=== PATIENT | female | born 1955 ===

== ENCOUNTER 2017-06-06 05:04 | Day surgery (SDC) | payer BC, OTHER ==
[2017-06-04 18:21] VITALS: BMI 33.8
[~2017-06-06 05:04] MED LIST: BUPIVACAINE HCL/PF 0.25% (2.5MG/ML) 10 ML VIAL IJ ONE; LIDOCAINE HCL 1% PRESERVATIVE FREE - 30ML VIAL IJ ONE; methylPREDNISolone ACET (DEPO) 80 MG/1 ML VIAL IJ ONE
[2017-06-06 06:28] VITALS: TEMP 97.8
[2017-06-06] MEDS ORDERED: LIDOCAINE HCL 1%, 10 MG/ML (20ML VIAL) ONE ×2 (07:16→07:17)
[2017-06-06] MEDS ORDERED: BUPIVACAINE HCL/PF 0.25% (2.5MG/ML) 10 ML VIAL ONE (07:16)
[2017-06-06] MEDS ORDERED: methylPREDNISolone ACET (DEPO) 80 MG/1 ML VIAL ONE (07:16)
[2017-06-06] MEDS ORDERED: MIDAZOLAM HCL 2 MG/2 ML SINGLE DOSE VIAL ONE (07:57)
[2017-06-06] MEDS ORDERED: LIDOCAINE HCL 1% PRESERVATIVE FREE - 30ML VIAL IJ ONE (08:25)
[2017-06-06] MEDS ORDERED: methylPREDNISolone ACET (DEPO) 80 MG/1 ML VIAL IJ ONE (08:25)
[2017-06-06] MEDS ORDERED: BUPIVACAINE HCL/PF 0.25% (2.5MG/ML) 10 ML VIAL IJ ONE (08:25)
--- NOTE | 2017-06-06 09:06 | PN ---
Progress Note (short form) - Note Progress Note: NEUROSURGERY Doing well No back or leg complaint Sitting up in bed No H/A, N/V; tolerating po B LE 4+-5 Stable neurologically f/u plan discussed
--- NOTE | 2017-06-06 09:58 | OP ---
DATE OF OPERATION: 06/06/2017 PREOPERATIVE DIAGNOSIS: L4-5 and L5-S1 spondylolisthesis with back pain and lumbar radiculopathy. POSTOPERATIVE DIAGNOSIS: L4-5 and L5-S1 spondylolisthesis with back pain and lumbar radiculopathy. ATTENDING SURGEON: Ayden Ford MD PROCEDURE: 1. Right L5-S1 epidural steroid injection. 2. Intraoperative fluoroscopy. ANESTHESIA: Local with IV sedation. ANESTHESIOLOGIST: Preston Lujan MD INDICATION: The patient is a 61-year-old female with intractable lower back pain and lumbar radiculopathy. MRI demonstrated spinal stenosis and spondylolisthesis at L4-5 and L5-S1. Because of intractable symptoms and failure of conservative treatment, she is here for the first epidural steroid injection. She will require IV sedation because of her anxiety. The risks of the procedure include, but are not limited to, bleeding, infection, spinal headache, and neurological injury. The patient understands the indication for the procedure, procedure in detail, risks and benefits, and alternatives for the treatment of her lumbar condition and wishes to proceed. No guarantees were given for a favorable outcome. PROCEDURE IN DETAIL: After the patient was taken to the operating room, she was placed in a prone position with a pillow under her hips. Lumbar region cleaned with alcohol and prepped with Betadine. A skin wheal was raised with 5 mL of 1% Xylocaine. A 22-gauge spinal needle was inserted under AP and lateral fluoroscopic guidance from a left-sided approach to L5-S1. Extremely deep exposure was encountered. Ptws-lq-oxaurxtdts technique was utilized, and there was no CSF or blood backflow. The interlaminar approach was taken. Depo-Medrol 80 mg and 1 mL of 0.25% Marcaine were injected. The needle was withdrawn. Sterile bandage was applied. The patient tolerated the procedure well and was returned back to supine position, moving bilateral extremities well. She did not complain of headache. AYDEN FORD M.D. [id number]
[2017-06-06 12:48] VITALS: BP 115/65; PULSE 79
== END 2017-06-06 10:40 | disposition home or self-care (01) ==
LOC: JASU-SURG 05:04
PROVIDERS: ATTEND Neurological Surgery
PROC: 3E0S33Z Introduction of Anti-inflammatory into Epidural Space, Percutaneous Approach (ICD-10-PCS; 2017-06-06)
PROC: B01BYZZ Fluoroscopy of Spinal Cord using Other Contrast (ICD-10-PCS; 2017-06-06)
PROC: 3E0S3BZ Introduction of Anesthetic Agent into Epidural Space, Percutaneous Approach (ICD-10-PCS; principal; 2017-06-06 08:00)
DX: M43.17 Spondylolisthesis, lumbosacral region (principal); M54.17 Radiculopathy, lumbosacral region
CPT/HCPCS: 76000-TC